=== PATIENT | male | born 1945 | race Caucasian/White ===

== ENCOUNTER 2018-12-22 16:21 | Emergency (ER) | payer OTHER ==
[~2018-12-22] VITALS: Ht 180.3 cm; Wt 81.6 kg
[2018-12-22 16:48] VITALS: BP 132/81; Ht 180.3 cm; Wt 81.6 kg
== END 2018-12-22 18:30 | disposition home or self-care (01) ==
LOC: ED 16:21
DX: I10 Essential (primary) hypertension (principal); Z85.46 Personal history of malignant neoplasm of prostate